=== PATIENT | male | born 1980 | race Caucasian/White ===

== ENCOUNTER 2018-09-19 18:50 | Emergency (ER) | payer SELFPAY ==
[2018-09-19 19:12] VITALS: BP 143/92; TEMP 98.8; O2SAT 99
--- NOTE | 2018-09-19 19:27 | ED.PDOC ---
History of Present Illness - General Chief Complaint: General Stated Complaint: hemorrhoids for 1 month Time Seen by Provider: 09/19/18 19:19 Source: patient Exam Limitations: no limitations - History of Present Illness Initial Comments: PT C/O HEMORRHOIDS FOR PAST MONTH. PAIN AND BLEEDING WITH BM. Severity: moderate Improving Factors: nothing Worsening Factors: other - SITTING, BOWEL MOVEMENTS Allergies/Adverse Reactions: Allergies NO KNOWN ALLERGY Allergy (Verified 09/19/18 19:12) Home Medications: Ambulatory Orders Hydrocortisone 25 mg Supp [Anusol-HC Suppository] 1 ea [place] BID #20 sup 02/17/16 Ibuprofen [Motrin] 600 mg PO TID #15 tab 02/17/16 Misc. Devices [Crutches/Aluminum/Adult] 1 mis XX PRN PRN #1 mis 06/09/16 Hydrocort 2.5% Crm (Anusol Hc) [Anusol-HC Cream] 2.5 % NH TID #1 tube 09/19/18 Lidocaine 4% Topical [Xylocaine 4% Topical] 4 % TOP QID PRN #1 bttl 09/19/18 Review of Systems - Review of Systems Constitutional: Denies: chills, fever Gastrointestinal/Abdominal: Denies: abdominal pain, nausea, vomiting Genitourinary: States: no symptoms reported Musculoskeletal: Denies: back pain Skin: States: no symptoms reported Hematologic/Lymphatic: States: no symptoms reported Past Medical History (General) - Patient Medical History Hx Seizures: No Hx Stroke: No Hx Dementia: No Hx Asthma: No Hx of COPD: No Hx Cardiac Disorders: No Hx Congestive Heart Failure: No Hx Pacemaker: No Hx Hypertension: No Hx Thyroid Disease: No Hx Diabetes: No Hx Gastroesophageal Reflux: No Hx Renal Disease: No Hx Cancer: No Hx of HIV: No Hx Hepatitis C: No Hx MRSA: No - Vaccination History Hx Tetanus, Diphtheria Vaccination: Yes Hx Influenza Vaccination: No Hx Pneumococcal Vaccination: No - Social History Hx Tobacco Use: Yes Hx Alcohol Use: Yes Hx Substance Use: No Hx Substance Use Treatment: No Hx Depression: No Hx Physical Abuse: No Hx Emotional Abuse: No Hx Suspected Abuse: No - Female History Patient : No Family Medical History - Family History Mother Family History: No Known Living Status: Still Living Physical Exam - Physical Exam General Appearance: Alert, No apparent distress Eye Exam: bilateral normal Neck: non-tender, full range of motion, supple Respiratory: lungs clear, normal breath sounds Cardiovascular/Chest: regular rate, rhythm, no murmur Gastrointestinal/Abdominal: non tender, soft, no organomegaly Rectal Exam: normal rectal tone, other - SMALL ANAL FISSURE 6 O'CLOCK, SMALL INTERNAL HEMORRHOID 4 O'CLOCK. NO MASSES, PROSTATE NL. Back Exam: normal inspection Extremity: non-tender, normal inspection Neurologic: alert, normal mood/affect Skin Exam: normal color, warm/dry Lymphatic: no adenopathy Departure - Departure Clinical Impression: Anal fissure, Hemorrhoids without complication Time of Disposition: 19:31 Disposition: Discharge to Home or Self Care Condition: Good Departure Forms: ED Discharge - Pt. Copy, Patient Portal Self Enrollment Instructions: Anal Fissure, Hemorrhoids Prescriptions: Hydrocort 2.5% Crm (Anusol Hc) [Anusol-HC Cream] 2.5 % NH TID #1 tube Lidocaine 4% Topical [Xylocaine 4% Topical] 4 % TOP QID PRN #1 bttl PRN Reason: Rectal Pain Or Itching Home Medications: Ambulatory Orders Hydrocortisone 25 mg Supp [Anusol-HC Suppository] 1 ea NH BID #20 sup 02/17/16 Ibuprofen [Motrin] 600 mg PO TID #15 tab 02/17/16 Misc. Devices [Crutches/Aluminum/Adult] 1 mis XX PRN PRN #1 mis 06/09/16 Hydrocort 2.5% Crm (Anusol Hc) [Anusol-HC Cream] 2.5 % NH TID #1 tube 09/19/18 Lidocaine 4% Topical [Xylocaine 4% Topical] 4 % TOP QID PRN #1 bttl 09/19/18
== END 2018-09-19 19:45 | disposition home or self-care (01) ==
LOC: ER 18:50
DX: K64.8 Other hemorrhoids (principal); K60.2 Anal fissure, unspecified; Z87.891 Personal history of nicotine dependence